=== PATIENT | female | born 1990 | race Caucasian/White ===

== ENCOUNTER 2017-10-14 20:09 | Emergency (ER) | payer BC, MEDICAID ==
[2017-10-14 21:02] VITALS: BP 101/69
--- NOTE | 2017-10-14 21:45 | ER Document Report ---
ED Medical Screen (RME) - General Chief Complaint: Flu Symptoms Stated Complaint: NECK AND BACK PAIN Time Seen by Provider: 10/14/17 21:41 Mode of Arrival: Ambulatory Information source: Patient Notes: Patient is a 26-year-old female who presents to the ER today for 1 week of cough , body aches, fever, chills, headache and neck pain that radiates from behind her eyes up over her head and down her neck and then spine. Patient has been seen in 3 ERs and diagnosed with the flu, then told that she might have viral meningitis but she states no further testing was performed other than a flu test that was negative and a chest x-ray that was negative. TRAVEL OUTSIDE OF THE [place] IN LAST 30 DAYS: No - Related Data Allergies/Adverse Reactions: amoxicillin [Amoxicillin] Allergy (Verified 12/12/14 06:46) miconazole nitrate [From Monistat 3] Allergy (Verified 12/12/14 06:46) nystatin [Nystatin] Allergy (Verified 12/12/14 06:46) Past Medical History - General Information source: Patient Neurological Medical History: Reports: Hx Migraine Psychiatric Medical History: Reports: Hx Depression Past Surgical History: Reports: Hx Section - Immunizations Immunizations up to date: Yes Hx Diphtheria, Pertussis, Tetanus Vaccination: Yes Review of Systems - Review of Systems Constitutional: See HPI Respiratory: See HPI Musculoskeletal: See HPI Physical Exam - Vital signs Vitals: Temp Pulse Resp BP Pulse Ox 98.8 F 96 16 101/69 99 10/14/17 21:00 10/14/17 21:00 10/14/17 21:00 10/14/17 21:00 10/14/17 21:00 - Notes Notes: PHYSICAL EXAMINATION: GENERAL: Mildly ill-appearing, uncomfortable, but in no acute distress. LUNGS: Rhonchi that clears with cough, no wheezes or rales HEART: Regular rate and rhythm without murmurs Course - Vital Signs Vital signs: Temp Pulse Resp BP Pulse Ox 98.8 F 96 16 101/69 99 10/14/17 21:00 10/14/17 21:00 10/14/17 21:00 10/14/17 21:00 10/14/17 21:00
[2017-10-14] MEDS ORDERED: GUAIFENESIN/D-METHORPHAN (200-20 MG) SYRUP 10 ML PO ONE (21:59)
--- NOTE | 2017-10-14 22:06 | RADIOLOGY REPORT (SQ) ---
EXAM DESCRIPTION: CHEST PA/LAT COMPLETED DATE/TIME: 10/14/2017 9:59 pm REASON FOR STUDY: cough, fever/body aches COMPARISON: 01/09/2014. EXAM PARAMETERS: NUMBER OF VIEWS: two views TECHNIQUE: Digital Frontal and Lateral radiographic views of the chest acquired. RADIATION DOSE: NA LIMITATIONS: none FINDINGS: LUNGS AND PLEURA: No opacities, masses or pneumothorax. No pleural effusion. MEDIASTINUM AND HILAR STRUCTURES: No masses or contour abnormalities. HEART AND VASCULAR STRUCTURES: Heart normal size. No evidence for failure. BONES: No acute findings. HARDWARE: None in the chest. OTHER: No other significant finding. IMPRESSION: NO SIGNIFICANT RADIOGRAPHIC FINDING IN THE CHEST. TECHNICAL DOCUMENTATION: JOB ID: [id number] [employer]- All Rights Reserved
[2017-10-14 22:27] LABS: ABSOLUTE EOSINOPHILS # (AUTO) 0.2 10^3/uL (0.0-0.6); ABSOLUTE LYMPHOCYTES (AUTO) 2.6 10^3/uL (0.5-4.7); ABSOLUTE MONOCYTES (AUTO) 0.5 10^3/uL (0.1-1.4); ABSOLUTE NEUT (AUTO) 5.2 10^3/uL (1.7-8.2); BASOPHILS % (AUTO) 0.4 % (0-2); HEMATOCRIT 39.2 % (36.0-47.0); HEMOGLOBIN 13.1 g/dL (12.0-15.5); LYMPHOCYTES % (AUTO) 30.4 % (13-45); MEAN CORPUSCULAR HEMOGLOBIN 28.3 pg (27.0-33.4); MEAN CORPUSCULAR HGB CONC 33.5 g/dL (32.0-36.0); MEAN CORPUSCULAR VOLUME 85 fl (80-97); PLATELET COUNT 207 10^3/uL (150-450); RED BLOOD COUNT 4.63 10^6/uL (3.72-5.28); RED CELL DISTRIBUTION WIDTH 14.1 % (11.5-14.0); SEGMENTED NEUTROPHILS % (AUTO) 61.2 % (42-78); TOTAL CELLS COUNTED % (AUTO) 100 %; WHITE BLOOD COUNT 8.5 10^3/uL (4.0-10.5)
[2017-10-14 22:38] LABS: APPEARANCE,URINE SLIGHTLY-CLOUDY; BILIRUBIN,URINE NEGATIVE (NEGATIVE); COLOR,URINE YELLOW; GLUCOSE, URINE NEGATIVE (NEGATIVE); KETONES,URINE NEGATIVE (NEGATIVE); LEUKOCYTE ESTERASE,URINE NEGATIVE (NEGATIVE); NITRITE,URINE NEGATIVE (NEGATIVE); PROTEIN,URINE NEGATIVE (NEGATIVE); URINE SPECIFIC GRAVITY 1.016
[2017-10-14 22:42] LABS: A TYPE INFLUENZA AG NEGATIVE (NEGATIVE); B INFLUENZA AG NEGATIVE (NEGATIVE)
[2017-10-14 22:44] LABS: ALANINE AMINOTRANSFERASE 30 U/L (9-52); ALBUMIN 4.6 g/dL (3.5-5.0); ALKALINE PHOSPHATASE 94 U/L (38-126); ANION GAP 12 (5-19); ASPARTATE AMINO TRANSFERASE 23 U/L (14-36); BILIRUBIN,DIRECT 0.1 mg/dL (0.0-0.4); BILIRUBIN,TOTAL 0.5 mg/dL (0.2-1.3); BLOOD UREA NITROGEN 9 mg/dL (7-20); CALCIUM 9.6 mg/dL (8.4-10.2); CARBON DIOXIDE 26 mmol/L (22-30); CHLORIDE 102 mmol/L (98-107); GLUCOSE 89 mg/dL (75-110); POTASSIUM 3.6 mmol/L (3.6-5.0); SODIUM 140.2 mmol/L (137-145); TOTAL PROTEIN 7.6 g/dL (6.3-8.2)
[2017-10-14] MEDS ORDERED: HYDROCODONE/ACETAMINOPHEN 5-325 MG TABLET PO ONE (23:01)
[2017-10-14] MEDS ORDERED: KETOROLAC TROMETHAMINE 60 MG/2 ML SDV IM ONE (23:04)
[2017-10-14] MEDS ORDERED: ACETAMINOPHEN 325 MG TABLET PO ONE (23:04)
[2017-10-14] MEDS ORDERED: PROMETHAZINE HCL 25 MG TABLET PO ONE ×2 (23:04→23:07)
--- NOTE | 2017-10-14 23:08 | ER Document Report ---
ED General - General Chief Complaint: Flu Symptoms Stated Complaint: NECK AND BACK PAIN Time Seen by Provider: 10/14/17 21:41 Mode of Arrival: Ambulatory TRAVEL OUTSIDE OF THE [place] IN LAST 30 DAYS: No - HPI Patient complains to provider of: Back pain neck pain nausea vomiting Notes: Patient coming in for back pain nausea vomiting feeling unwell myalgias. Patient is previously seen at [facility] and discharged home with Flexeril for pain and giving nausea medication however states that he has had pain in her neck. Patient upon my evaluation is alert oriented. Patient states fever approximate 3 days ago no fever since that time. No recent travel no recent sick contacts. - Related Data Allergies/Adverse Reactions: amoxicillin [Amoxicillin] Allergy (Verified 12/12/14 06:46) miconazole nitrate [From Monistat 3] Allergy (Verified 12/12/14 06:46) nystatin [Nystatin] Allergy (Verified 12/12/14 06:46) Past Medical History - General Information source: Patient - Social History Smoking Status: Never Smoker Chew tobacco use (# tins/day): No Frequency of alcohol use: None Drug Abuse: None Family History: Reviewed & Not Pertinent, Other - Syncopal episodes Patient has suicidal ideation: No Patient has homicidal ideation: No Neurological Medical History: Reports: Hx Migraine Renal/ Medical History: Denies: Hx Peritoneal Dialysis Psychiatric Medical History: Reports: Hx Depression Past Surgical History: Reports: Hx Section - Immunizations Immunizations up to date: Yes Hx Diphtheria, Pertussis, Tetanus Vaccination: Yes Review of Systems - Review of Systems Constitutional: Other - Flulike symptoms EENT: No symptoms reported Cardiovascular: No symptoms reported Respiratory: No symptoms reported Gastrointestinal: No symptoms reported Genitourinary: No symptoms reported Female Genitourinary: No symptoms reported Musculoskeletal: No symptoms reported Skin: No symptoms reported Hematologic/Lymphatic: No symptoms reported Neurological/Psychological: No symptoms reported Physical Exam - Vital signs Vitals: Temp Pulse Resp BP Pulse Ox 98.8 F 96 16 101/69 99 10/14/17 21:00 10/14/17 21:00 10/14/17 21:00 10/14/17 21:00 10/14/17 21:00 Interpretation: Normal - General General appearance: Appears well, Alert - HEENT Head: Normocephalic, Atraumatic Eyes: Normal Pupils: PERRL - Respiratory Respiratory status: No respiratory distress Chest status: Nontender Breath sounds: Normal Chest palpation: Normal - Cardiovascular Rhythm: Regular Heart sounds: Normal auscultation Murmur: No - Abdominal Inspection: Normal Distension: No distension Bowel sounds: Normal Tenderness: Nontender Organomegaly: No organomegaly - Back Back: Normal, Nontender - Extremities General upper extremity: Normal inspection, Nontender, Normal color, Normal ROM , Normal temperature General lower extremity: Normal inspection, Nontender, Normal color, Normal ROM , Normal temperature, Normal weight bearing. No: Mayur's sign - Neurological Neuro grossly intact: Yes Cognition: Normal Orientation: AAOx4 Meenakshi Coma Scale Eye Opening: Spontaneous Meenakshi Coma Scale Verbal: Oriented Meenakshi Coma Scale Motor: Obeys Commands Meenakshi Coma Scale Total: 15 Speech: Normal Motor strength normal: LUE, RUE, LLE, RLE Sensory: Normal - Psychological Associated symptoms: Normal affect, Normal mood - Skin Skin Temperature: Warm Skin Moisture: Dry Skin Color: Normal Course - Re-evaluation Re-evalutation: 10/15/17 23:25 Laboratory studies not show any critical pathology. More likely patient has underlying viral illness. Patient will be discharged home - Vital Signs Vital signs: Temp Pulse Resp BP Pulse Ox 98.8 F 96 16 101/69 99 10/14/17 21:00 10/14/17 21:00 10/14/17 21:00 10/14/17 21:00 10/14/17 21:00 - Laboratory Result Diagrams: 10/14/17 22:10 10/14/17 22:10 Laboratory results interpreted by me: 10/14/17 10/14/17 22:10 22:10 RDW 14.1 H Urine Urobilinogen 2.0 H Discharge - Discharge Clinical Impression: Viral syndrome Condition: Good Disposition: HOME, SELF-CARE Instructions: Gastroenteritis (adult) ([facility]), Viral Syndrome ([facility]) Additional Instructions: Laboratory studies do not show any significant pathology. Please take medication as prescribed. Please do not take the Toradol along with your Motrin. sHe can take Motrin and Tylenol together. Drink plenty of fluids. Follow-up with your primary care physician in 3-5 days. I do believe her symptoms are more viral in nature or viral syndrome. Prescriptions: Ketorolac Tromethamine [Toradol 10 mg Tablet] 10 mg PO Q8HP PRN #30 tablet PRN Reason: Promethazine HCl [Phenergan 25 mg Tablet] 25 mg PO Q6 #30 tablet Forms: Return to Work
== END 2017-10-14 23:28 | disposition home or self-care (01) ==
LOC: ER 20:09
DX: B34.9 Viral infection, unspecified (principal); M54.2 Cervicalgia; M54.9 Dorsalgia, unspecified; R11.2 Nausea with vomiting, unspecified; M79.1 Myalgia; Z79.899 Other long term (current) drug therapy
CPT/HCPCS: 99283; 96372; 36415; 85025; 81025; 86308; 80053; 81001; 87804; 71046; J3490 ×3; J1885